=== PATIENT | female | born 1985 | race American Indian/Alaskan Native ===

== ENCOUNTER 2021-04-19 05:12 | Emergency (ER) | payer BC ==
[2021-04-19 05:59] VITALS: BP 130/86
[2021-04-19 06:39] LABS: Basophils % (Auto) 0.2 % (0.0-1.8); Eosinophils % (Auto) 0.4 % (0.0-4.3); Hematocrit 34.1 % (30.3-42.9); Hemoglobin 10.9 gm/dl (10.1-14.3); Lymphocytes # (Auto) 0.7 K/mm3 (1.2-5.4); Lymphocytes % (Auto) 11.9 % (13.4-35.0); Mean Corpuscular HGB Conc 32 % (30-34); Mean Corpuscular Volume 83 fl (79-97); Monocytes # (Auto) 0.3 K/mm3 (0.0-0.8); Monocytes % (Auto) 5.7 % (0.0-7.3); Platelet Count 205 K/mm3 (140-440); Red Cell Distribution Width 15.9 % (13.2-15.2)
[2021-04-19 07:16] LABS: Alanine Aminotransferase 17 units/L (7-56); Albumin 3.6 g/dL (3.9-5); Blood Urea Nitrogen 2 mg/dL (7-17); Calcium 8.7 mg/dL (8.4-10.2); Hemolysis Index 7
[2021-04-19 07:19] LABS: BUN/Creatinine Ratio 5
[2021-04-19 07:22] LABS: Bacteria,Urine 2+ /HPF (Negative); Bilirubin,Urine NEG (Negative); Blood,Urine SM (Negative); Color,Urine Yellow (Yellow); Mucus,Urine 2+ /HPF; Protein,Urine <15 mg/dL mg/dL (Negative); Urobilinogen,Urine < 2.0 mg/dL (<2.0)
[2021-04-19] MEDS ORDERED: FAMOTIDINE 20 MG TAB PO ONE (08:11)
[2021-04-19] MEDS ORDERED: HYOSCYAMINE SUBL 0.125 MG TAB SL ONE (08:11)
[2021-04-19] MEDS ORDERED: ACETAMINOPHEN 500 MG TAB PO ONE (08:12)
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
== END 2021-04-19 09:18 | disposition home or self-care (01) ==
LOC: ED 05:12
DX: K29.20 Alcoholic gastritis without bleeding (principal); N39.0 Urinary tract infection, site not specified; I10 Essential (primary) hypertension; F17.200 Nicotine dependence, unspecified, uncomplicated; Z88.8 Allergy status to other drugs, medicaments and biological substances; Z79.899 Other long term (current) drug therapy; Z90.49 Acquired absence of other specified parts of digestive tract; Z98.890 Other specified postprocedural states
CPT/HCPCS: 36415; 80053; 81001; 83690; 84703; 85025

== ENCOUNTER 2021-04-23 23:37 | Emergency (ER) | payer BC ==
[2021-04-24 00:12] LABS: Basophils % (Auto) 0.4 % (0.0-1.8); Eosinophils # (Auto) 0.2 K/mm3 (0.0-0.4); Eosinophils % (Auto) 2.5 % (0.0-4.3); Hematocrit 35.8 % (30.3-42.9); Hemoglobin 11.2 gm/dl (10.1-14.3); Lymphocytes # (Auto) 2.8 K/mm3 (1.2-5.4); Mean Corpuscular HGB Conc 31 % (30-34); Mean Corpuscular Volume 82 fl (79-97); Monocytes # (Auto) 0.9 K/mm3 (0.0-0.8); Monocytes % (Auto) 12.1 % (0.0-7.3); Platelet Count 202 K/mm3 (140-440); Red Blood Count 4.36 M/mm3 (3.65-5.03); Red Cell Distribution Width 16.1 % (13.2-15.2)
[2021-04-24 00:34] LABS: Alanine Aminotransferase 14 units/L (7-56); Albumin 3.9 g/dL (3.9-5); Blood Urea Nitrogen 4 mg/dL (7-17); Calcium 8.7 mg/dL (8.4-10.2); Hemolysis Index 9
[2021-04-24 00:45] LABS: BUN/Creatinine Ratio 8
[2021-04-24] MEDS ORDERED: ONDANSETRON 4 MG/2 ML INJ IV ONE (01:41)
[2021-04-24] MEDS ORDERED: fentaNYL 100 MCG/2 ML INJ IV ONE ×2 (01:41→03:59)
[2021-04-24] MEDS ORDERED: SODIUM CHLORIDE 0.9% 1000 ML 1,000 ML IV ONE (01:41)
--- NOTE | 2021-04-24 01:45 | Emergency Department Report ---
HPI - General Chief Complaint: Abdominal Pain Time Seen by Provider: 04/24/21 01:32 - HPI HPI: Room 25 The patient is a 35-year-old female present with a chief complaint of abdominal pain. Patient was seen in this ED approximate 4 days ago for the same complaint of epigastric and right flank pain. Patient was seen and diagnosed gastritis and sent home medications including nitrofurantoin for UTI. Patient states her symptoms resolved however today the pain returned despite taking her medications. Patient describes her abdominal pain is burning and aching in nature. Patient admits to nausea and vomiting. Patient denies dysuria, hematuria or vaginal discharge. Patient denies history of fever. Patient currently gives her pain a score of 10/10. The patient states she was driven to the emergency department by her brother ED Past Medical Hx - Past Medical History Previous Medical History?: Yes Hx Hypertension: Yes - Surgical History Past Surgical History?: Yes Hx Cholecystectomy: Yes Additional Surgical History: Gastric Bypass - Family History Family history: no significant - Social History Smoking Status: Current Some Day Smoker (Black and milds) Substance Use Type: None (Denies illicit drug use), Alcohol (Occasional) - Medications Home Medications: Home Medications Medication Instructions Recorded Confirmed Last Taken Type Famotidine [Pepcid] 20 mg PO BID 10 Days #20 tablet 04/19/21 Unknown Rx Hyoscyamine Subl [Levsin Sl 0.125 0.125 mg SL Q6HR PRN #12 tab 04/19/21 Unknown Rx TAB] Nitrofurantoin [place]/M-Cryst 100 mg PO Q12HR 7 Days #14 capsule 04/19/21 Unknown Rx [Macrobid CAP] Ondansetron [Zofran Odt] 4 mg PO Q8HR PRN #12 tab.rapdis 04/19/21 Unknown Rx HYDROcodone/APAP 5-325 [[place] 1 - 2 each PO Q6HR PRN #10 tablet 04/24/21 Unknown Rx 5/325] Ondansetron [Zofran ODT TAB] 8 mg PO Q8HR #20 tab.rapdis 04/24/21 Unknown Rx Pantoprazole [Protonix] 40 mg PO BID #30 tablet 04/24/21 Unknown Rx Promethazine [Phenergan] 25 mg ME Q6HR PRN #5 supp.rect 04/24/21 Unknown Rx ED Review of Systems ROS: Stated complaint: STOMACH PAIN Other details as noted in HPI Constitutional: denies: fever Eyes: denies: eye pain ENT: denies: throat pain Respiratory: no symptoms reported Cardiovascular: denies: chest pain Endocrine: no symptoms reported Gastrointestinal: abdominal pain, nausea, vomiting. denies: diarrhea Genitourinary: denies: dysuria, hematuria, discharge Musculoskeletal: denies: back pain Neurological: denies: headache Physical Exam - Physical Exam Vital Signs: Vital Signs 04/23/21 23:54 Temperature 98.3 F Pulse Rate 72 Respiratory 20 Rate Blood Pressure 134/73 O2 Sat by Pulse 100 Oximetry Physical Exam: GENERAL: The patient is well-developed well-nourished female lying on stretcher not appearing to be in acute distress. [] HEENT: Normocephalic. Atraumatic. Extraocular motions are intact. Patient has moist mucous membranes. NECK: Supple. Trachea midline CHEST/LUNGS: Clear to auscultation. There is no respiratory distress noted. HEART/CARDIOVASCULAR: Regular. There is no tachycardia. There is no gallop rub or murmur. ABDOMEN: Abdomen is soft, with tenderness to palpation in the right upper quadrant and midepigastric region. Patient has normal bowel sounds. There is no abdominal distention. There is no guarding SKIN: There is no rash. There is no edema. There is no diaphoresis. NEURO: The patient is awake, alert, and oriented. The patient is cooperative. The patient has no focal neurologic deficits. The patient has normal speech MUSCULOSKELETAL: There is no CVA tenderness. There is no evidence of acute injury. ED Course Vital Signs 04/23/21 23:54 Temperature 98.3 F Pulse Rate 72 Respiratory 20 Rate Blood Pressure 134/73 O2 Sat by Pulse 100 Oximetry - Reevaluation(s) Reevaluation #1: 04/24/21 03:11 Patient states she feels improved after medication 04/24/21 04:43 Patient tolerated p.o. challenge - Consultations Consultation #1: 04/24/21 03:10 Surgery paged 04/24/21 03:[address] scan discussed with Dr. Shah- recommends p.o. challenge of clear liquids. If patient tolerates p.o. challenge may be sent home with PPI and follow-up with Dr. Blanca as an outpatient. Patient does not pass p.o. challenge she should be admitted to the hospital. ED Medical Decision Making - Lab Data Result diagrams: 04/23/21 23:57 04/23/21 23:57 Laboratory Tests 04/23/21 04/23/21 04/23/21 23:57 23:57 23:57 WBC 7.2 RBC 4.36 Hgb 11.2 Hct 35.8 MCV 82 MCH 26 L MCHC 31 RDW 16.1 H Plt Count 202 Lymph % (Auto) 39.0 H [place] % (Auto) 12.1 H Eos % (Auto) 2.5 Baso % (Auto) 0.4 Lymph # (Auto) 2.8 [place] # (Auto) 0.9 H Eos # (Auto) 0.2 Baso # (Auto) 0.0 Seg Neutrophils % 46.0 Seg Neutrophils # 3.3 Sodium 139 Potassium 3.1 L D Chloride 101.9 Carbon Dioxide 18 L Anion Gap 22 BUN 4 L Creatinine 0.5 L Estimated GFR > 60 BUN/Creatinine Ratio 8 Glucose 83 Calcium 8.7 Total Bilirubin 0.30 AST 30 ALT 14 Alkaline Phosphatase 65 Total Protein 7.2 Albumin 3.9 Albumin/Globulin Ratio 1.2 Lipase HCG, Qual Negative Urine Color Urine Turbidity Urine pH Ur Specific [place] Urine Protein Urine Glucose (UA) Urine Ketones Urine Blood Urine Nitrite Urine Bilirubin Urine Urobilinogen Ur Leukocyte Esterase Urine WBC (Auto) Urine RBC (Auto) U Epithel Cells (Auto) Urine Bacteria (Auto) Hyaline Casts Urine Mucus 04/24/21 04/24/21 Unknown Unknown WBC RBC Hgb Hct MCV MCH MCHC RDW Plt Count Lymph % (Auto) [place] % (Auto) Eos % (Auto) Baso % (Auto) Lymph # (Auto) [place] # (Auto) Eos # (Auto) Baso # (Auto) Seg Neutrophils % Seg Neutrophils # Sodium Potassium Chloride Carbon Dioxide Anion Gap BUN Creatinine Estimated GFR BUN/Creatinine Ratio Glucose Calcium Total Bilirubin AST ALT Alkaline Phosphatase Total Protein Albumin Albumin/Globulin Ratio Lipase 13 HCG, Qual Urine Color Yellow Urine Turbidity Slightly-cloudy Urine pH 6.0 Ur Specific [place] 1.029 Urine Protein <15 mg/dl Urine Glucose (UA) Neg Urine Ketones 20 Urine Blood Sm Urine Nitrite Pos Urine Bilirubin Neg Urine Urobilinogen < 2.0 Ur Leukocyte Esterase Tr Urine WBC (Auto) 9.0 H Urine RBC (Auto) 4.0 U Epithel Cells (Auto) 11.0 Urine Bacteria (Auto) 1+ Hyaline Casts 1 Urine Mucus Few - Radiology Data Radiology results: report reviewed (CT abdomen pelvis), image reviewed (CT abdomen pelvis) [facility] [address] [place] [address] Cat Scan Report Signed Patient: NASH ZHOU MR#: [id number] : 1985 Acct:[id number] Age/Sex: 35 / F ADM Date: 04/23/21 Loc: ED Attending Dr: Ordering Physician: MARIANNE COLLINS MD Date of Service: 04/24/21 Procedure(s): CT abdomen pelvis w con Accession Number(s): [id number] cc: MARIANNE COLLINS MD CT ABDOMEN AND PELVIS WITH IV CONTRAST INDICATION: Epigastric and right flank pain, nausea vomiting. COMPARISON: None available. TECHNIQUE: Axial CT images were obtained through the abdomen and pelvis after 100 mL IV contrast. All CT scans at this location are performed using CT dose reduction for ALARA by means of automated exposure control. FINDINGS -- ABDOMEN: Lung Bases: No acute abnormality. Liver: Normal. Gallbladder: Removed. Bile Ducts: Normal. Pancreas: Normal. Spleen: Normal. Adrenals: Normal. Right Kidney and Proximal Ureter: Normal. Left Kidney and Proximal Ureter: Normal. Stomach and Bowel: Postoperative change noted. Lymph Nodes: No significant adenopathy. Aorta: No significant abnormality. IVC: Normal. Additional Findings: None. FINDINGS -- PELVIS: Urinary Bladder and Distal Ureters: Normal. Reproductive Organs: No acute abnormality. Intrauterine device noted. Small 1 cm left ovarian cyst, nonspecific Appendix: Normal. Bowel: No acute abnormality. Free Fluid: None. Lymph Nodes: No significant adenopathy. Additional Findings: None. Skeletal System: No acute abnormality. IMPRESSION: 1. Mild gastritis. 2. Question small mesenteric internal hernia of the upper midline pelvis without evidence of high- grade small bowel obstruction. This may be chronic. Signer Name: Ángel Bennett MD Signed: 04/24/2021 2:50 AM Workstation Name: [id number] Transcribed By: Dictated By: Ángel Bennett MD Electronically Authenticated By: Ángel Bennett MD Signed Date/Time: 04/24/21 0250 DD/ 0246 TD/TT: Print Cancel - Differential Diagnosis Gastritis, peptic ulcer disease, renal colic, pancreatitis Critical care attestation.: If time is entered above; I have spent that time in minutes in the direct care of this critically ill patient, excluding procedure time. ED Disposition Clinical Impression: Acute gastritis, Hypokalemia Disposition: TO HOME OR SELFCARE Is pt being admited?: No Does the pt Need Aspirin: No Condition: Stable Instructions: Abdominal Pain (ED), Gastritis, Adult, [id number], Hypokalemia Additional Instructions: Return to the emergency department should you develop worsening symptoms, inability to tolerate food or liquids, high fever or any other concerns Prescriptions: HYDROcodone/APAP 5-325 [[place] 5/325] 1 - 2 each PO Q6HR PRN #10 tablet PRN Reason: Pain Promethazine [Phenergan] 25 mg ME Q6HR PRN #5 supp.rect PRN Reason: Vomiting Pantoprazole [Protonix] 40 mg PO BID #30 tablet Ondansetron [Zofran ODT TAB] 8 mg PO Q8HR #20 tab.rapdis Referrals: BUCKY BLANCA MD [Staff Physician] - 3-5 Days (Dr. Blanca is a surgeon. Please follow-up with her for further evaluation) Time of Disposition: 04:42
--- NOTE | 2021-04-24 02:54 | Cat Scan Report ---
CT ABDOMEN AND PELVIS WITH IV CONTRAST INDICATION: Epigastric and right flank pain, nausea vomiting. COMPARISON: None available. TECHNIQUE: Axial CT images were obtained through the abdomen and pelvis after 100 mL IV contrast. All CT scans a t this location are performed using CT dose reduction for ALARA by means of automated exposure contro l. FINDINGS -- ABDOMEN: Lung Bases: No acute abnormality. Liver: Normal. Gallbladder: Removed. Bile Ducts: Normal. Pancreas: Normal. Spleen: Normal. Adrenals: Normal. Right Kidney and Proximal Ureter: Normal. Left Kidney and Proximal Ureter: Normal. Stomach and Bowel: Postoperative change noted. Lymph Nodes: No significant adenopathy. Aorta: No significant abnormality. IVC: Normal. Additional Findings: None. FINDINGS -- PELVIS: Urinary Bladder and Distal Ureters: Normal. Reproductive Organs: No acute abnormality. Intrauterine device noted. Small 1 cm left ovarian cyst, n onspecific Appendix: Normal. Bowel: No acute abnormality. Free Fluid: None. Lymph Nodes: No significant adenopathy. Additional Findings: None. Skeletal System: No acute abnormality. IMPRESSION: 1. Mild gastritis. 2. Question small mesenteric internal hernia of the upper midline pelvis without evidence of high-gra de small bowel obstruction. This may be chronic. Signer Name: Ángel Bennett MD Signed: 04/24/2021 2:50 AM Workstation Name: [id number]
[2021-04-24 03:38] LABS: Bacteria,Urine 1+ /HPF (Negative); Bilirubin,Urine NEG (Negative); Blood,Urine SM (Negative); Color,Urine Yellow (Yellow); Hyaline Casts,Urine 1 /LPF; Mucus,Urine FEW /HPF; Protein,Urine <15 mg/dL mg/dL (Negative); Urobilinogen,Urine < 2.0 mg/dL (<2.0)
[2021-04-24] MEDS ORDERED: METOCLOPRAMIDE 10 MG/2 ML INJ IV ONE (03:59)
[2021-04-24] MEDS ORDERED: KETOROLAC 30 MG/1 ML INJ IV ONE (04:43)
[2021-04-24 05:03] VITALS: BP 153/98
== END 2021-04-24 05:05 | disposition home or self-care (01) ==
LOC: ED 23:37
DX: K29.00 Acute gastritis without bleeding (principal); E87.6 Hypokalemia; I10 Essential (primary) hypertension; F17.290 Nicotine dependence, other tobacco product, uncomplicated
CPT/HCPCS: 36415; 74177; 80053; 81001; 83690; 84703; 85025; 87076; 87086; 87186; 96361; 96374; 96375; 96376; 99284; J1885; J2405; J2765; J3010; J7030; Q9967; 96360

== ENCOUNTER 2021-08-31 17:41 | Emergency (ER) | payer BC ==
[2021-08-31] MEDS ORDERED: SODIUM CHLORIDE 0.9% 1000 ML 1,000 ML IV ONE (17:59)
[2021-08-31] MEDS ORDERED: ONDANSETRON 4 MG/2 ML INJ IV ONE (17:59)
--- NOTE | 2021-08-31 18:03 | Emergency Department Report ---
HPI - General Chief Complaint: Abdominal Pain Time Seen by Provider: 08/31/21 17:53 - HPI HPI: This is a 36-year-old -Malag[place] female presents to the emergency department with a 1 week history of upper abdominal pain, nausea and vomiting. The patient describes the abdominal pain as a burning and gnawing sensation. Symptoms worsen after eating. She rates her pain intensity at 7 out of 10. No known alleviating factors. She has tried Tylenol and some other [id number] medications. She has a past medical history of gastric bypass, previous cholecystectomy, and the patient was seen here in April of this year and diagnosed with gastritis. She has an appointment coming up with gastroenterology. She does admit to having had the symptoms recur between her last emergency department visit and now, but says that the pain intensity and s ustained vomiting is worse, which is what brought her into be seen today. No sick contacts at home. She denies any fever, dysuria, vaginal bleeding or discharge, chest pain or shortness of breath. ED Past Medical Hx - Past Medical History Previous Medical History?: Yes Hx Hypertension: Yes Additional medical history: Gastritis - Surgical History Past Surgical History?: Yes Hx Cholecystectomy: Yes Additional Surgical History: Gastric Bypass, Umbilical hernia, - Social History Smoking Status: Current Some Day Smoker (Black and milds) Substance Use Type: None (Denies illicit drug use), Alcohol (Occasional) - Medications Home Medications: Home Medications Medication Instructions Recorded Confirmed Last Taken Type Hyoscyamine Subl [Levsin Sl 0.125 0.125 mg SL Q6HR PRN #12 tab 04/19/21 Unknown Rx TAB] Nitrofurantoin [place]/M-Cryst 100 mg PO Q12HR 7 Days #14 capsule 04/19/21 Unknown Rx [Macrobid CAP] HYDROcodone/APAP 5-325 [[place] 1 - 2 each PO Q6HR PRN #10 tablet 04/24/21 Unknown Rx 5/325] Ondansetron [Zofran ODT TAB] 8 mg PO Q8HR #20 tab.rapdis 04/24/21 Unknown Rx Pantoprazole [Protonix] 40 mg PO BID #30 tablet 04/24/21 Unknown Rx Promethazine [Phenergan] 25 mg MS Q6HR PRN #5 supp.rect 04/24/21 Unknown Rx Famotidine [Pepcid] 20 mg PO BID 10 Days #20 tablet 08/31/21 Unknown Rx Nitrofurantoin [place]/M-Cryst 100 mg PO Q12HR #14 capsule 08/31/21 Unknown Rx [Macrobid CAP] Ondansetron [Zofran ODT TAB] 4 mg PO Q8HR PRN #12 tab.rapdis 08/31/21 Unknown Rx ED Review of Systems ROS: Stated complaint: ABD PAIN,VOMITTING Other details as noted in HPI Comment: All other systems reviewed and negative Constitutional: denies: chills, fever Eyes: denies: eye pain, vision change ENT: denies: ear pain, throat pain Respiratory: denies: cough, shortness of breath Cardiovascular: denies: chest pain, palpitations Gastrointestinal: abdominal pain, nausea, vomiting Genitourinary: denies: dysuria, discharge Musculoskeletal: denies: joint swelling, arthralgia Skin: denies: rash, lesions Neurological: denies: headache, weakness Physical Exam - Physical Exam Vital Signs: Vital Signs 08/31/21 17:45 Temperature 98.5 F Pulse Rate 108 H Respiratory 18 Rate Blood Pressure 151/96 O2 Sat by Pulse 100 Oximetry Physical Exam: GENERAL: The patient is well-developed well-nourished. HENT: Normocephalic. Atraumatic. Patient has moist mucous membranes. EYES: Extraocular motions are intact. NECK: Supple. Trachea is midline. CHEST/LUNGS: Clear to auscultation. There is no respiratory distress noted. HEART/CARDIOVASCULAR: Regular. There is no tachycardia. There is no murmur. ABDOMEN: Abdomen is soft. Upper abdominal tenderness to palpation. No guarding. Patient has normal bowel sounds. There is no abdominal distention. SKIN: Skin is warm and dry. NEURO: The patient is awake, alert, and oriented. The patient is cooperative. The patient has no focal neurologic deficits. Normal speech. MUSCULOSKELETAL: There is no tenderness or deformity. There is no limitation range of motion. ED Course Vital Signs 08/31/21 17:45 Temperature 98.5 F Pulse Rate 108 H Respiratory 18 Rate Blood Pressure 151/96 O2 Sat by Pulse 100 Oximetry ED Medical Decision Making - Lab Data Result diagrams: 08/31/21 18:18 08/31/21 18:18 - Radiology Data Radiology results: image reviewed interpreted by me: Abdominal x-ray shows nonspecific nonobstructive bowel gas. No free air. - Medical Decision Making This patient presents with a few days of upper abdominal pain, nausea with vomiting. On examination she does have reproducible upper abdominal tenderness to palpation. However the abdomen is soft, nondistended and nontoxic in appearance. She had an abdominal x-ray that shows nonspecific nonobstructive bowel gas, no free air. Labs have been mostly unremarkable including CBC, metabolic panel, lipase, but the patient does have a mild urinary tract infection seen on urinalysis. She was given 2 different doses of IV antiemetics, some IV fluid resuscitation, IV Pepcid, and then was given a GI cocktail with Maalox and lidocaine. Upon reevaluation she is feeling improved and able to pass an oral challenge. Vital signs reassuring including being afebrile. The patient has an appointment with gastroenterology in 1 week. She has been given a prescription for antiemetics and Pepcid and an antibiotic for her urinary tract infection. Critical Care Time: No Critical care attestation.: If time is entered above; I have spent that time in minutes in the direct care of this critically ill patient, excluding procedure time. ED Disposition Clinical Impression: Hyperkalemia, Elevated blood pressure reading Abdominal pain Qualifiers: Abdominal location: upper abdomen, unspecified Qualified Code(s): R10.10 - Upper abdominal pain, unspecified Gastritis Qualifiers: Gastritis type: unspecified gastritis Chronicity: unspecified Gastritis bleeding: without bleeding Qualified Code(s): K29.70 - Gastritis, unspecified, without bleeding UTI (urinary tract infection) Qualifiers: Urinary tract infection type: acute cystitis Hematuria presence: without hematuria Qualified Code(s): N30.00 - Acute cystitis without hematuria Disposition: 01 HOME / SELF CARE / HOMELESS Is pt being admited?: No Condition: Stable Instructions: Abdominal Pain, Adult, Gastritis, Adult, Hyperkalemia, Abdominal Pain (ED) Additional Instructions: Please follow-up with gastroenterology as previously scheduled. Take all medications as prescribed. Try to stay away from alcohol, excessive caffeine use, spicy or fried foods. Return to the emergency department with any worsening of your symptoms, new or concerning symptoms not addressed during this current emergency department visit, or with any acute distress. Prescriptions: Nitrofurantoin Pepin/M-Cryst [Macrobid CAP] 100 mg PO Q12HR #14 capsule Famotidine [Pepcid] 20 mg PO BID 10 Days #20 tablet Ondansetron [Zofran ODT TAB] 4 mg PO Q8HR PRN #12 tab.rapdis PRN Reason: Nausea And Vomiting Time of Disposition: 21:44
[2021-08-31] MEDS ORDERED: FAMOTIDINE 20 MG/2 ML INJ IV ONE (19:20)
[2021-08-31 19:22] LABS: Alanine Aminotransferase 23 units/L (7-56); Albumin 4.3 g/dL (3.9-5); BUN/Creatinine Ratio 13; Bilirubin,Direct < 0.2 mg/dL (0-0.2); Blood Urea Nitrogen 5 mg/dL (7-17); Hemolysis Index 226
[2021-08-31 19:44] LABS: Bacteria,Urine 2+ /HPF (Negative); Mucus,Urine 1+ /HPF
[2021-08-31 19:47] LABS: Bilirubin,Urine Negative (Negative); Blood,Urine Small (Negative); Color,Urine Yellow (Yellow); Urobilinogen,Urine < 2.0 mg/dL (<2.0)
[2021-08-31] MEDS ORDERED: LIDOCAINE VISCOUS 2% 15 ML ORAL LIQD PO ONE ×2 (20:03→20:44)
[2021-08-31] MEDS ORDERED: ALUM-MAG HYDROXIDE-SIMETHICONE 200-200-20MG/5ML ORAL LIQD 30 ML PO ONE ×2 (20:04→20:44)
[2021-08-31 20:08] VITALS: BP 155/102
[2021-08-31] MEDS ORDERED: METOCLOPRAMIDE 10 MG/2 ML INJ IV ONE (20:09)
[2021-08-31 20:10] LABS: Hematocrit 41.7 % (30.3-42.9); Hemoglobin 13.3 gm/dl (10.1-14.3); Mean Corpuscular HGB Conc 32 % (30-34); Mean Corpuscular Volume 85 fl (79-97); Platelet Count 223 K/mm3 (140-440); Red Cell Distribution Width 16.7 % (13.2-15.2)
--- NOTE | 2021-08-31 20:21 | XRay Report ---
XR abdomen 2V INDICATION / CLINICAL INFORMATION: Abd pain. COMPARISON: None available. FINDINGS: TUBES / LINES: None. BOWEL GAS PATTERN: Nonobstructive bowel gas pattern. FREE AIR / EXTRALUMINAL GAS: None seen. ADDITIONAL FINDINGS: Postoperative sutures seen within the left midabdomen. Intrauterine device. No s ignificant additional findings. IMPRESSION: 1. No acute findings. Signer Name: Pravin Traylor MD Signed: 08/31/2021 8:17 PM Workstation Name: [id number]
[2021-08-31 20:53] LABS: Platelet Clumps Rare; RBC Morphology Normal; Total Cells Counted 100
== END 2021-09-01 09:38 | disposition home or self-care (01) ==
LOC: ED 17:41
DX: K29.70 Gastritis, unspecified, without bleeding (principal); N39.0 Urinary tract infection, site not specified; E86.0 Dehydration; I10 Essential (primary) hypertension; F17.200 Nicotine dependence, unspecified, uncomplicated
CPT/HCPCS: 36415; 74019; 80048; 80076; 81001; 83690; 84703; 85007; 85025; 87076; 87086; 87186; 96361; 96374; 96375; 99284; J2405; J2765; J7030